=== PATIENT | female | born 1945 | race Two or more races ===

== ENCOUNTER 2018-01-09 11:41 | Emergency (ER) | payer OTHER ==
[~2018-01-09] VITALS: Ht 170.2 cm; Wt 64.4 kg
[2018-01-09] MEDS ORDERED: SERTRALINE HCL100 MG (12:00)
== END 2018-01-09 22:04 | disposition home or self-care (01) ==
LOC: ER 11:41
DX: K59.09 Other constipation (principal)

== ENCOUNTER 2018-04-14 08:44 | Emergency (ER) | payer OTHER ==
[~2018-04-14] VITALS: Ht 170.2 cm; Wt 64.9 kg
[~2018-04-14 08:44] MED LIST: SERTRALINE HCL100 MG
== END 2018-04-14 13:27 | disposition home or self-care (01) ==
LOC: ER 08:44
DX: K52.89 Other specified noninfective gastroenteritis and colitis (principal)